=== PATIENT | female | born 1945 | race Caucasian/White ===

== ENCOUNTER 2017-11-09 14:52 | Emergency (ER) | payer OTHER, MEDICARE ==
--- NOTE | 2017-11-09 15:01 | EDPHY ---
H & P Time Seen by Provider: 11/09/17 14:52 HPI/ROS: CHIEF COMPLAINT: Forehead laceration HISTORY OF PRESENT ILLNESS: [place] the [place] and [place] on her face. Complains of facial pain as well as left knee and left hand pain. Pain in the left lateral neck but no loss of consciousness. No visual symptoms or vomiting. No chest pain or shortness of breath. Symptoms moderate, started just after the fall. Definitely did not have syncope. REVIEW OF SYSTEMS: Eye: no change in vision ENT: no sore throat Cardiac: no chest pain or syncope Pulmonary: no cough or SOB Abdomen: no vomiting, diarrhea, abdominal pain Musculoskeletal: No mid or lower back pain Skin: Forehead laceration, left knee abrasion Neuro: no headache Constitutional: no fever : no urinary symptoms A comprehensive 10 point review of systems is otherwise negative aside from elements mentioned in the history of present illness. PAST MEDICAL HISTORY: Includes depression,"prediabetes", right knee replacement in July of this year Social history: Primary care is Dr. Avendano in [place] General Appearance: Alert and conversant, cooperative. Eyes: No scleral icterus. Pupils equal reactive extraocular motion intact. ENT, Mouth: Normal mucous membranes. No septal hematoma, does have nasal bone tenderness. No jaw tenderness and no malocclusion. Normal opening and closing the mouth. Respiratory: Normal respiratory effort, breath sounds equal, lungs are clear to auscultation. Cardiovascular: Regular rate and rhythm. Gastrointestinal: Abdomen is soft and non tender. Neurological: Alert, face symmetric, normal motor and sensory in extremities. Skin: Abrasion to the left knee and a forehead laceration. Musculoskeletal: Cervical spine, left patella, and left hand tenderness on the ulnar portion. Psychiatric: Not agitated. Emergency Department course/MDM: Head and cervical spine CT. Head CT performed for head trauma and large laceration and age, x-rays of the left knee and left hand. Clearly mechanical and not syncope by history. 1549: Negative head CT and cervical spine CT for trauma except for nasal fracture, Dr. Beverly X-ray and CT results discussed with patient and family. Hand surgery follow-up this week with splinting, ENT follow-up. Please see PA note for laceration repair. (Marty Patricia) Constitutional: Initial Vital Signs Temperature (C) 36.8 C 11/09/17 14:55 Heart Rate 92 11/09/17 14:55 Respiratory Rate 18 11/09/17 14:55 Blood Pressure 125/85 H 11/09/17 14:55 O2 Sat (%) 93 11/09/17 14:55 O2 Delivery Mode Room Air Allergies/Adverse Reactions: No Known Allergies Allergy (Unverified 11/09/17 14:54) Home Medications: Medication Instructions Recorded Sertraline HCl 11/09/17 traZODone 11/09/17 Medical Decision Making - Diagnostics Imaging: Discussed imaging studies w/ banquet server on call Radiologist - Diagnostics Imaging Results: Imaging Impressions Cervical Spine CT 11/09/17 15:01 Impression: 1. Mild age-related atrophy. 2. No hemorrhage, mass effect, or definite acute peripheral infarct. 3. No acute osseous abnormality seen about the cervical spine. 4. Moderate degenerative disk disease at C5-C6 with marginal osteophytes and large bridging spur left posterior paracentral causing severe left lateral recess stenosis and moderate spinal stenosis. 5. Nondisplaced nasal bone fracture. If symptoms worsen, additional imaging may be necessary. Findings discussed with Marty Patricia M.D. at 15:47 hour, 11/09/2017. Head CT 11/09/17 15:01 Impression: 1. Mild age-related atrophy. 2. No hemorrhage, mass effect, or definite acute peripheral infarct. 3. No acute osseous abnormality seen about the cervical spine. 4. Moderate degenerative disk disease at C5-C6 with marginal osteophytes and large bridging spur left posterior paracentral causing severe left lateral recess stenosis and moderate spinal stenosis. 5. Nondisplaced nasal bone fracture. If symptoms worsen, additional imaging may be necessary. Findings discussed with Marty Patricia M.D. at 15:47 hour, 11/09/2017. Hand X-Ray 11/09/17 15:02 Impression: Mildly displaced fracture of the base of the fifth proximal phalanx extending into the intra-articular space. Knee X-Ray 11/09/17 15:02 Impression: 1. No acute osseous abnormality. 2. Osteoarthrosis as described. Procedures: I was asked by Dr. Patricia to repair facial laceration. Laceration repair. Verbal consent was obtained from the patient. The 5 cm laceration on the forehead was anesthetized using 1% lidocaine with epinephrine. The wound was irrigated with saline, draped and explored to its base with a gloved finger. There were no deep structures involved. No tendon injury was identified. The wound was repaired with 6 0 Prolene, 18 sutures. The wound repair was complex. The procedure was performed by myself. (Angela Garcia) Procedure: Splint placement. A left small finger lymphoma splint was applied. After application of the splint I returned and re-examined the patient at 4:25 p.m.. The splint was adequately immobilizing the joint and distal to the splint the patient's circulation and sensation was intact. (Marty Patricia) Differential Diagnosis: Differential diagnosis considered for head injury including but not limited to concussion, skull fracture, intraparenchymal contusion, subarachnoid, subdural and epidural hematoma. (Marty Patricia) Departure - Departure Disposition: Home, Routine, Self-Care Clinical Impression: left small finger fracture Facial laceration Qualifiers: Encounter type: initial encounter Qualified Code(s): S01.81XA - Laceration without foreign body of other part of head, initial encounter Head injury Qualifiers: Encounter type: initial encounter Qualified Code(s): S09.90XA - Unspecified injury of head, initial encounter Nasal bone fracture Qualifiers: Encounter type: initial encounter Fracture type: closed Qualified Code(s): S02.2XXA - Fracture of nasal bones, initial encounter for closed fracture Condition: Good Instructions: Laceration (ED), Head Injury (ED) Additional Instructions: Wound Care Follow-Up: Removal of sutures in 5 days. Suture removal is complimentary in uncomplicated cases. Infection or abnormal findings would require reevaluation by the MD. In that case, you may be billed. Referrals: Patient,NotPresent [Unknown] - As per Instructions (Dr. Avendano in [place]) Joe Bernard MD [Medical Doctor] - 2-3 days without fail (Wear splint and follow up with Dr. Bernard or other hand specialist in the next 2-3 days.) Fabricio Martin MD [Medical Doctor] - 2-3 days, call for appt. (Follow-up with ENT if you have trouble breathing through her nose or feel like it looks crooked.)
[2017-11-09 15:04] VITALS: BP 125/85
== END 2017-11-09 16:56 | disposition home or self-care (01) ==
LOC: EDUNIT#
PROC: 0HQ1XZZ Repair Face Skin, External Approach (ICD-10-PCS; principal; 2017-11-09)
DX: S02.2XXA Fracture of nasal bones, initial encounter for closed fracture (principal); S62.617A Displaced fracture of proximal phalanx of left little finger, initial encounter for closed fracture; S01.81XA Laceration without foreign body of other part of head, initial encounter; W18.43XA Slipping, tripping and stumbling without falling due to stepping from one level to another, initial encounter; Y92.513 Shop (commercial) as the place of occurrence of the external cause; Y99.8 Other external cause status; Y93.89 Activity, other specified